=== PATIENT | male | born 1955 | race Caucasian/White ===

== ENCOUNTER 2020-12-23 12:13 | Emergency (ER) | payer BC ==
[~2020-12-23] VITALS: Ht 190.5 cm; Wt 135.0 kg
--- NOTE | 2020-12-23 12:40 | NUR ---
PT BIB [facility]. PT STATED THAT HE HAS LEFT LEG PAIN X1 WEEK AND TODAY, DEVELOPED SOB AT ABOUT 1030. PT STATED THAT HE HAS A HISTORY OF DVT AND PE AND IS ON ELIQUIS. PT'S OXYGEN SATURATIONS IN HIGH 90'S ON RA. NO SWELLING OR REDNESS NOTED TO LEFT LEG. CMS INTACT. PT DENIES ANY RECENT FEVER OR COUGH.
[2020-12-23 13:51] LABS: BASOPHILS % (AUTO) 1 % (0-1); EOSINOPHILS % (AUTO) 1 % (1-7); LYMPHOCYTES % (AUTO) 17 % (22-44); MEAN CORPUSCULAR HGB CONC 34.4 g/dL (33.2-36.2); MEAN PLATELET VOLUME 7.5 fL (7.4-10.4); MONOCYTES % (AUTO) 8 % (2-9); NEUTROPHILS % (AUTO) 74 % (42-75); PLATELET COUNT 193 x10^3/uL (130-400); RED BLOOD COUNT 4.21 x10^6/uL (4.38-5.82); RED CELL DISTRIBUTION WIDTH 13.3 % (9.4-14.8)
[2020-12-23 13:53] LABS: MD NO
[2020-12-23 13:54] LABS: ALANINE AMINOTRANSFERASE 26 U/L (12-78); ALBUMIN 3.4 g/dL (3.4-5.0); ANION GAP 9 mmol/L (5-15); CALCIUM 8.7 mg/dL (8.5-10.1); CHLORIDE 104 mmol/L (98-107)
[2020-12-23 13:58] LABS: ALKALINE PHOSPHATASE 55 U/L (45-117); TOTAL PROTEIN 7.3 g/dL (6.4-8.2); TROPONIN I < 0.015 ng/mL (0.000-0.045)
[2020-12-23 14:09] VITALS: BP 107/71
--- NOTE | 2020-12-23 14:10 | NUR ---
PT RESTING COMFORTABLY IN [facility], [place]. CALL LIGHT WITHIN REACH
--- NOTE | 2020-12-23 14:11 | NUR ---
US AT BEDSIDE
--- NOTE | 2020-12-23 15:20 | NUR ---
DISCHARGE INSTRUCTIONS REVIEWED WITH PT. ALL QUESTIONS ANSWERED AT THIS TIME
== END 2020-12-23 15:21 | disposition home or self-care (01) ==
LOC: ED 15:18
DX: M79.652 Pain in left thigh (principal); R07.89 Other chest pain; M79.89 Other specified soft tissue disorders; R06.00 Dyspnea, unspecified; I10 Essential (primary) hypertension; Z86.711 Personal history of pulmonary embolism; Z79.01 Long term (current) use of anticoagulants; Z86.718 Personal history of other venous thrombosis and embolism
CPT/HCPCS: 36415; 71045; 80053; 83880; 84484; 85025; 93005; 99285

== ENCOUNTER 2021-01-23 12:56 | Emergency (ER) | payer MEDICARE ==
[~2021-01-23] VITALS: Ht 193 cm; Wt 136.3 kg
--- NOTE | 2021-01-23 13:10 | NUR ---
PT HAD GLF YESTERDAY, HIT RIGHT SIDE OF RIBS AND HIP. HIT HEAD SOFTLY. NO LOC. ON ELIQUIS FOR PE. MARLENY PA TO BEDSIDE FOR EVALUATON. PT RESTING IN BED WITH 9/10 RIB AND HIP PAIN. PT ATTACHED TO MONITOR. VSS. NADN. PT WITH VISBLE TREMORS.
[2021-01-23] MEDS ORDERED: MORPHINE SULFATE 4 MG/ML, 1ML IVPush PRN (13:30)
[2021-01-23] MEDS ORDERED: ONDANSETRON 2MG/ML, 2ML IVPush ONE (13:30)
[2021-01-23] MEDS ORDERED: SODIUM CHLORIDE 0.9% 1,000ML IVBOLUS ONE (13:30)
[2021-01-23] MEDS ORDERED: MORPHINE SULFATE 4 MG/ML, 1ML ONE (13:41)
[2021-01-23] MEDS ORDERED: ONDANSETRON 2MG/ML, 2ML ONE (13:41)
[2021-01-23 13:45] LABS: ALANINE AMINOTRANSFERASE 24 U/L (12-78); ALBUMIN 3.4 g/dL (3.4-5.0); ANION GAP 11 mmol/L (5-15); CALCIUM 8.7 mg/dL (8.5-10.1); CHLORIDE 98 mmol/L (98-107)
[2021-01-23 13:48] LABS: ALKALINE PHOSPHATASE 62 U/L (45-117); BILIRUBIN,TOTAL 1.4 mg/dL (0.2-1.0); CREATININE 1.01 mg/dL (0.7-1.3); TOTAL PROTEIN 7.3 g/dL (6.4-8.2)
--- NOTE | 2021-01-23 13:49 | NUR ---
MEAL BREAK RN: Pt medicated for nausea and pain at this time.
[2021-01-23 13:59] LABS: MEAN CORPUSCULAR HEMOGLOBIN 34.2 pg (27.5-34.5); MEAN CORPUSCULAR HGB CONC 35.8 g/dL (33.2-36.2); MEAN PLATELET VOLUME 8.5 fL (7.4-10.4); PLATELET COUNT 182 x10^3/uL (130-400); RED BLOOD COUNT 4.48 x10^6/uL (4.38-5.82)
--- NOTE | 2021-01-23 14:12 | NUR ---
MEAL BREAK RN: Primary RN updated to medications given while she was on break. Noted pt out of room at this time. Care transferred back to primary RN.
--- NOTE | 2021-01-23 14:12 | NUR ---
PT TO CT.
[2021-01-23 14:15] LABS: MD YES
[2021-01-23 14:17] LABS: BANDS%(MANUAL) 1 % (0-7); BASOS#(MANUAL) 0.19 x10^3/uL (0-0.1); BASOS% (MANUAL) 2 % (0-1); LYMPH#(MANUAL) 1.84 x10^3/uL (1-3.4); LYMPHS% (MANUAL) 19 % (22-44); MONOS#(MANUAL) 0.58 x10^3/uL (0.3-2.7); MONOS% (MANUAL) 6 % (2-9); REACTIVE LYMPHS % (MANUAL) 1 % (0-0); SEG#(MANUAL) 6.89 x10^3/uL (1.8-6.8); SEGS% (MANUAL) 71 % (42-75)
[2021-01-23 14:18] LABS: <RBC MORPHOLOGY> NORMAL
[2021-01-23 14:19] LABS: <PLATELET ESTIMATE> ADEQUATE; <PLT MORPHOLOGY> NORMAL PLT MORPH
[2021-01-23] MEDS ORDERED: OMNIPAQUE 350 MG/ML, 150 ML BOTTLE ONE (14:25)
--- NOTE | 2021-01-23 14:27 | NUR ---
pt back from ct. vss. gutierrez. friend at bedside.
[2021-01-23 15:02] LABS: MICROSCOPIC INDICATED
[2021-01-23 15:44] VITALS: BP 106/67
--- NOTE | 2021-01-23 15:45 | NUR ---
pt resting in bed. vss. pt to be d/c
--- NOTE | 2021-01-23 15:49 | NUR ---
Patient given discharge instructions and they have confirmed that they understand the instructions. Patient ambulatory with steady gait.
== END 2021-01-23 15:50 | disposition home or self-care (01) ==
LOC: ED 13:18
DX: S20.211A Contusion of right front wall of thorax, initial encounter (principal); N30.00 Acute cystitis without hematuria; I10 Essential (primary) hypertension; Z86.718 Personal history of other venous thrombosis and embolism; W01.0XXA Fall on same level from slipping, tripping and stumbling without subsequent striking against object, initial encounter; Y93.89 Activity, other specified; Y92.009 Unspecified place in unspecified non-institutional (private) residence as the place of occurrence of the external cause; Y99.8 Other external cause status
CPT/HCPCS: 36415; 71045; 74177; 80053; 81001; 83690; 85025; 87086; 96374; 96375; 99285; J2270; J2405; Q9967